=== PATIENT | male | born 1960 | race Caucasian/White ===

== ENCOUNTER → 2017-02-27 | Outpatient (CLI) | payer OTHER ==
--- NOTE | 2017-02-27 20:14 | CONS ---
CONSULTATION REASON FOR EVALUATION: Sleep apnea. This is a 56-year-old male patient who was diagnosed having obstructive sleep apnea more than 9 years ago through a sleep center in [place]. The patient back then was diagnosed having severe SAMIR with an AHI of 62, and he was placed on a CPAP pressure of 10 cm of water. He is using an Ultra Mirage full-face mask. Over the past year the patient has been having some difficulty tolerating the CPAP machine. For now he is snoring and he has been noted to stop breathing while on CPAP treatment. He occasionally wakes up gasping for air in addition. He is waking up tired and he is worried about his sleep in general. He goes to bed around 10:00 pm, wakes up at 5:00 am in the morning. He works in [employer], and he drives back and forth from [place] to [employer] without having to fall asleep while driving. No substance abuse. No alcoholism. No recent weight gain. He has gained overall around 25 pounds since 2006. His current Carpio score is 10. PAST MEDICAL HISTORY: 1. SAMIR. 2. Hyperlipidemia. 3. Hypertension. PAST SURGICAL HISTORY: Hernia repair. ALLERGIES: NOT KNOWN. OUTPATIENT MEDICATION LIST: Outpatient medication list includes: 1. Lipitor. 2. Lisinopril. SOCIAL HISTORY: The patient is a nonsmoker. No history of alcoholism. No history of IV drugs. FAMILY HISTORY: Positive for coronary artery disease, hypertension and degenerative arthritis. REVIEW OF SYSTEMS: Twelve-point review of system was done. Positive findings were all mentioned above in the history of present illness. PHYSICAL EXAMINATION: BP is 128/82, pulse 91, respirations 16, temperature 98.2, saturation 95% on room air. Neck size 18 inches BMI 30.8. Carpio score is 10. Weight is 197. Height is 67 inches. GENERAL APPEARANCE: Calm, comfortable. HEENT: Crowding of posterior pharynx. Mallampati class 4. No goiter or neck masses. LUNGS: Clear to auscultation. Heart sounds are regular rate and rhythm. Normal S1, S2. No S3. No S4. No murmurs. ABDOMEN: Soft, non-tender. No organomegaly. EXTREMITIES: No edema. No cyanosis or clubbing. IMPRESSION: Symptomatic obstructive sleep apnea. The patient has severe disease at baseline with an AHI of 62. He has been treated with a CPAP pressure of 10 cm of water. He is utilizing an older-generation REM Star CPAP unit, and his treatment has been suboptimal. Currently he is symptomatic. He is utilizing an Ultra Mirage full-face mask. PLAN: 1. Encourage weight loss. 2. Ideally the patient will need another CPAP titration. It is time to get this patient to a newer CPAP machine and update his CPAP pressure. This will be a good opportunity also to provide this patient a better mask interface. We will try different full-face masks on him and will make appropriate adjustments. 3. He will see me in followup following the CPAP titration. MMODL / IJN: [id number] /
== END ==
LOC: SLEEP 13:55
PROVIDERS: ATTEND Internal Medicine Critical Care Medicine
DX: G47.33 Obstructive sleep apnea (adult) (pediatric) (principal); Z79.899 Other long term (current) drug therapy
CPT/HCPCS: 99211

== ENCOUNTER → 2022-07-05 | Outpatient (CLI) | payer OTHER ==
--- NOTE | 2022-07-05 14:56 | US ---
EXAMINATION TYPE: US carotid duplex BILAT DATE OF EXAM: 07/05/2022 COMPARISON: NONE CLINICAL HISTORY: R55 SYNCOPE AND COLLAPSE. Syncope TECHNIQUE: Carotid duplex ultrasound examination. Indirect Doppler criteria was utilized. FINDINGS: EXAM MEASUREMENTS: RIGHT: Peak Systolic Velocity (PSV) cm/sec ----- Right CCA: 138.9 ----- Right ICA: 93.0 ----- Right ECA: 156.0 ICA/CCA ratio: 0.7 RIGHT: End Diastole cm/sec ----- Right CCA: 32.8 ----- Right ICA: 27.0 ----- Right ECA: 26.8 LEFT: Peak Systolic Velocity (PSV) cm/sec ----- Left CCA: 114.7 ----- Left ICA: 93.0 ----- Left ECA: 96.3 ICA/CCA ratio: 0.8 LEFT: End Diastole cm/sec ----- Left CCA: 30.5 ----- Left ICA: 40.2 ----- Left ECA: 16.0 VERTEBRALS (direction of flow): Right Vertebral: Antegrade Left Vertebral: Antegrade Rhythm: Normal PALAEONTOLOGIST NOTES: No significant stenosis seen IMPRESSION: Less than 50% stenosis of the bilateral carotid bifurcations. Criteria for Assigning % of Stenosis / Diameter reduction (Estimation based on the indirect measurements of the internal carotid artery velocities (ICA PSV). 1. Normal (no stenosis)=ICA PSV < 125 cm/s: ratio < 2.0: ICA EDV<40 cm/s. 2. Less than 50% stenosis=ICA PSV < 125 cm/s: ratio < 2.0: ICA EDV<40 cm/s. 3. 50 to 69% stenosis=ICA PSV of 125 to 230 cm/s: ration 2.0 ? 4.0: ICA EDV 40-100 cm/s. 4. Greater than 70% stenosis to near occlusion= ICA PSV > 230 cm/s: ratio > 4.0: ICA EDV > 100 cm/s. 5. Near occlusion= ICA PSV velocities may be low or undetectable: variable ratio and ICA EDV. 6. Total occlusion=unable to detect flow.
== END | disposition home or self-care (01) ==
LOC: RADUSWWP 14:02
PROVIDERS: ATTEND Family Medicine
DX: I65.23 Occlusion and stenosis of bilateral carotid arteries (principal)
CPT/HCPCS: 93880